=== PATIENT | male | born 1985 ===

== ENCOUNTER 2019-11-12 17:32 | Emergency (ER) | payer SELFPAY ==
--- NOTE | 2019-11-12 17:34 | USR_ITS ---
PROCEDURE INFORMATION: Exam: US Scrotum Exam date and time: 11/12/2019 5:44 PM Age: 34 years old Clinical indication: Scrotum pain; Patient HX: Left side pain, no known trauma. Started today; Additional info: Testicle pain TECHNIQUE: Imaging protocol: Real-time ultrasound of the scrotum and contents with color Doppler and image documentation. COMPARISON: No relevant prior studies available. FINDINGS: Right testicle: Normal. No mass. No torsion. Normal vascular flow. The right testicle measures 4.3 x 2.2 x 3.0 cm Left testicle: Normal. No mass. No torsion. Normal vascular flow. The left testicle measures 4.1 x 2.6 x 3.0 cm Epididymides: The right epididymis is unremarkable. The right epididymis measures 0.6 x 1.0 x 0.9 cm The left epididymis is enlarged measuring 1.4 x 1.2 x 2.0 cm and there is markedly increased color flow compatible with left epididymitis. Scrotum: Normal. No hydrocele US/US scrotum [id number] IMPRESSION: 1. Left epididymitis. 2. No orchitis or torsion. The right epididymis is unremarkable.
--- NOTE | 2019-11-12 17:50 | ED_ITS ---
HPI - Male Genitourinary General: Stated complaint: SWOLLEN TESTICLE LEFT Time Seen by Provider: 11/12/19 17:45 Source: patient Mode of arrival: ambulatory Limitations: no limitations History of Present Illness: HPI Narrative: Patient is a 34-year-old male who presents to ED today with complaints of left testicle pain over the past month. Patient states pain began gradually. He does not complain of any penile discharge, dysuria, rashes/lesions. He does state him and his significant other split for approximately a month and he did have one other sexual partner during that time. Patient was seen at [facility] approximately 2 weeks ago and states he did not have an ultrasound or urine performed but they placed him on antibiotics. Patient states he improved during the antibiotic course but afterwards pain quickly returned. He has not been running fevers. He states the testicle is enlarged and painful but not red or warm. MD Complaint: testicle pain Onset (ago): week(s) Duration: constant Location: left testicle Associated symptoms: Reports no associated symptoms and nausea; Deny dysuria or vomiting Related Data: Sexually active: Yes Review of Systems Const: Denies: fever, chills, body aches, change in appetite, change in weight, fatigue or malaise Card: Denies: chest pain, palpitations, irregular heart rhythm, edema, lightheadedness, syncope or pre-syncope Resp: Denies: shortness of breath, productive cough, coughing up blood or chest congestion GI: Reports: nausea; Denies: abdominal pain, vomiting, diarrhea, change in bowel habits, change in stool character, blood in stool, black tarry stool, mucus in stool, white/light colored stool or fatty stool : Reports: testicular pain and scrotal swelling; Denies: flank pain, difficulty urinating, painful urination, urinary frequency, urinary urgency, urinary hesitancy, urinary dribbling, difficulty starting urination, change in urine stream, genital lesion or penile discharge Musc: Denies: neck pain or back pain Skin/Breast: Denies: rash Physical Exam Const: COMMON NORMALS: average body habitus, oriented x3, no limitations, healthy appearing, alert and well nourished GENERAL APPEARANCE: in distress (appears in pain) Resp: COMMON NORMALS: normal respiratory effort and clear to auscultation bilaterally AUSCULTATION: clear to auscultation bilaterally Cardio: COMMON NORMALS: regular rate and regular rhythm RATE: regular rate RHYTHM: regular rhythm GI: COMMON NORMALS: normal to inspection, nondistended, normoactive bowel sounds, soft to palpation, non-tender, no hepatosplenomegaly and no masses PALPATION: Yes soft and Yes no hepatosplenomegaly : COMMON NORMALS: Yes no CVA tenderness BLADDER/KIDNEY EXAM: Yes no CVA tenderness PENIS: normal penis MEATUS: meatus normal TESTES: Yes shonda ticular swelling Testicular swelling laterality: left, Yes testicular tenderness Testicular tenderness laterality: left and Yes epididymal tenderness (left) Back/Pelvis: COMMON NORMALS: no CVA tenderness Neuro: COMMON NORMALS: oriented x3 SENSORIUM/ORIENTATION: Yes alert Skin: COMMON NORMALS: no rashes or lesions noted GENERAL SKIN EXAM: no rashes or lesions noted Course Vital Signs: Vital signs: Vital Signs Respiratory Rate 18 11/12/19 18:33 Pulse Oximetry 96 11/12/19 18:33 MDM - Male MDM Narrative: Medical decision making narrative: We will run gonorrhea and chlamydia off patient's urine. He was treated with IM Rocephin and given 1g azithromycin. He will be discharged home on doxycycline. Recommend scrotal support, elevation, ice and we will get him follow-up with urology. Lab Data: Labs: Lab Results 11/12/19 Range/Units 18:04 Urine Color Yellow (Yellow) Urine Appearance Clear (CLEAR) Urine pH 7 (5-7) Ur Specific Gravit y 1.010 (1.005-1.030) Urine Protein Neg (Negative) Urine Glucose (UA) Norm (Normal) Urine Ketones Negative (Negative) Urine Blood Neg (Negative) Urine Nitrate Negative (Negative) Urine Bilirubin Neg (NEGATIVE) Urine Urobilinogen Norm (Negative) mg/dL Ur Leukocyte Siean ase Negative (Negative) Imaging Data: US testiclar : Radiologist's impression: [address] [place] [address] Ultrasound Report Signed Patient: Omar Ozuna Unit #: [id number] : 1985 A cct#:[id number] Age/Sex: 34 / M ADM Date: 11/12/19 Loc: ER Room/Bed: Attending Dr: Ordering Provider/Ordering MD: Buster Yang MD Date of Service: 11/12/19 Procedure(s): US scrotum [id number] Accession Number(s): [id number] Report Number: [id number] PROCEDURE INFORMATION: Exam: US Scrotum Exam date and time: 11/12/2019 5:44 PM Age: 34 years old Clinical indication: Scrotum pain; Patient HX: Left side pain, no known trauma. Started today; Additional info: Testicle pain TECHNIQUE: Imaging protocol: Real-time ultrasound of the scrotum and contents with color Doppler and image documentation. COMPARISON: No relevant prior studies available. FINDINGS: Right testicle: Normal. No mass. No torsion. Normal vascular flow. The right testicle measures 4.3 x 2.2 x 3.0 cm Left testicle: Normal. No mass. No torsion. Normal vascular flow. The left testicle measures 4.1 x 2.6 x 3.0 cm Epididymides: The right epididymis is unremarkable. The right epididymis measures 0.6 x 1.0 x 0.9 cm The left epididymis is enlarged measuring 1.4 x 1.2 x 2.0 cm and there is markedly increased color flow compatible with left epididymitis. Scrotum: Normal. No hydrocele US/US scrotum [id number] IMPRESSION: 1. Left epididymitis. 2. No orchitis or torsion. The right epididymis is unremarkable. Dictated By: Daniella Gutiérrez Signed By: Daniella Gutiérrez Signed Date/Time: 11/12/191814 DD/ 12 Discharge Plan Discharge Patient Disposition: Home, Self-Care Clinical Impression: Epididymitis, left Condition: Stable Prescriptions: New doxycycline hyclate 100 mg tablet 100 mg PO Q12H 10 Days Qty: 20 RF: 0 hydrocodone-acetaminophen 5-325 mg tablet 1 tab PO Q4H PRN (Reason: pain) Qty: 20 RF: 0 Referrals: Viktoriya Schuler DO [Primary Care Provider] - Patient Instructions: Epididymitis, Epididymitis (ED) Activity Restrictions/Additional Instructions: As discussed you need to be wearing tight fitting underwear for scrotal support. Elevate the scrotum. You may apply ice 15-20 minutes every 1-2 hours. Fill and begin taking your antibiotics immediately. Case management should contact you to set you up with urology. Return to the emergency department for worsening pain, swelling, fevers greater than 100.4, or any other concerns you may have. Coding Level of Care Code ED Model Builder for Cedric Leach
[2019-11-12] MEDS: cefTRIAXone 250 mg SDV IM (18:32)
[2019-11-12 18:33] VITALS: RESP 18; O2SAT 96
[2019-11-12 18:33] LABS: Add Urine Microscopic? NO
[2019-11-12] MEDS: morphine 4 mg/mL SDV 1 mL IM (18:33)
[2019-11-12] MEDS: azithromycin 250 mg Tablet 1000 MG PO (18:35)
[2019-11-12 18:43] LABS: Bilirubin Urine Neg (NEGATIVE); Blood Urine Neg (Negative); Glucose Urine UA Norm (Normal); Ketones Urine Negative (Negative); Leukocyte Esterase Urine Negative (Negative); Nitrate Urine Negative (Negative); Protein Urine Neg (Negative); Urine Appearance Clear (CLEAR); Urine Color Yellow (Yellow); Urobilinogen Urine Norm (Negative); pH Urine 7 (5-7)
[2019-11-12 19:20] VITALS: BP 133/67; PULSE 88; RESP 16; O2SAT 96
--- NOTE | 2019-11-13 10:50 | DCPLANNER ---
cardroom manager had order to schedule a follow up appointment for patient with Dr. Hogue. cardroom manager called the office of Dr. Hogue, spoke with Naila. cardroom manager gave clinic patients information, was told that it would be printed and given to Amy for review. Clinic will call patient with appointment information, outsole caser will call for appointment information.
--- NOTE | 2019-11-14 09:06 | DCPLANNER ---
Patient has a follow up appointment scheduled for Friday, November 15, 2019 at 10:[address] Hogue. Clinic will call patient with appointment information.
--- NOTE | 2020-01-21 15:51 | DCPLANNER ---
Patient did not attend appointment scheduled for 12.20.[address] Hogue.
== END 2019-11-12 19:29 | disposition home or self-care (01) ==
LOC: ER 18:43
PROVIDERS: Emergency Provider Physician Assistant; Family Provider Family Medicine; PCP Family Medicine
DX: N45.1 Epididymitis (principal)
CPT/HCPCS: 12345; 76870; 81003; 87491; 87591; 96372; 99281; 99283; J0696; J2270; Q0144